=== PATIENT | female | born 1960 | race Caucasian/White ===

== ENCOUNTER → 2020-11-23 | Outpatient (CLI) | payer BC ==
[2020-11-23 09:17] LABS: Basophils % (A) 1 %; Eosinophils # (A) 0.2 k/uL (0-0.7); Eosinophils % (A) 4 %; HCT 43.1 % (34.0-46.0); HGB 13.8 gm/dL (11.4-16.0); Lymphocytes % (A) 35 %; MCH 28.2 pg (25.0-35.0); MCV 88.1 fL (80.0-100.0); Mean Platelet Volume 7.8; Monocytes # (A) 0.3 k/uL (0-1.0); Monocytes % (A) 5 %; Neutrophils % (A) 54 %; Platelet Count 230 k/uL (150-450); RBC 4.89 m/uL (3.80-5.40); RDW 13.8 % (11.5-15.5); WBC 5.6 k/uL (3.8-10.6)
[2020-11-23 09:35] LABS: Albumin 3.9 g/dL (3.5-5.0); Bilirubin, Delta 0.2 mg/dL (0.0-0.2); Bilirubin,Unconjugated 0.4 mg/dL (0.0-1.1); Calcium 9.6 mg/dL (8.4-10.2); Potassium 4.4 mmol/L (3.5-5.1); Total Bilirubin 0.6 mg/dL (0.2-1.3); Total Protein 6.8 g/dL (6.3-8.2)
--- NOTE | 2020-11-23 10:04 | US ---
EXAMINATION TYPE: US abdomen complete DATE OF EXAM: 11/23/2020 COMPARISON: NONE CLINICAL HISTORY: 60-year-old female K82.9 GALLBLADDER DISEASE. TECHNIQUE: Multiple sonographic images of the abdomen are obtained. 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 Pancreas: Most of the pancreatic body and tail is obscured by bowel gas shadowing. Visualized head a nd neck show no gross abnormality. Liver: Difficult to penetrate, suspected to be in large part due to patient large body habitus. There may be a component of underlying hepatic steatosis. Limited assessment for any focal liver lesions. Gallbladder: wnl as seen, limited visualization Evidence for sonographic Mnuoz's sign: no CBD: very limited visualization Spleen: wnl as seen Right Kidney: No hydronephrosis, limited visualization Left Kidney: very limited visualization Upper IVC: wnl Abd Aorta: distal bifurcation obscured by bowel gas IMPRESSION: 1. Technically very limited exam due to large patient body habitus. There may be a component of under lying hepatic steatosis. 2. No gallstones or biliary ductal dilatation. 3. Multiple structures were suboptimally visualized.
== END | disposition home or self-care (01) ==
LOC: RADUSWWP 08:09
PROVIDERS: ATTEND Family Medicine Addiction Medicine
DX: K82.9 Disease of gallbladder, unspecified (principal); I10 Essential (primary) hypertension; J44.9 Chronic obstructive pulmonary disease, unspecified
CPT/HCPCS: 76700; 80053; 82248; 85025